=== PATIENT | female | born 1940 | race Caucasian/White ===

== ENCOUNTER 2025-05-06 00:39 | Emergency (ER) | payer OTHER ==
[~2025-05-06] VITALS: Ht 165.1 cm; Wt 91.0 kg
[2025-05-06 00:43] VITALS: O2SAT 94
[2025-05-06] MEDS: PIPERACILLIN/TAZO 3.375G/50ML 50 ML IV ONE (02:07)
[2025-05-06] MEDS: SODIUM CHLORIDE 0.9% 1,000 ML IV ONE (02:07)
[2025-05-06] MEDS: VANCOMYCIN 1G PREMIX 200 ML IV ONE (02:27)
[2025-05-06 02:40] LABS: BASOPHILS % 0.2 % (0.0-2.0); EOSINOPHILS % 0.4 % (0.0-5.0); HEMATOCRIT. 34.2 % (36.0-48.0); HEMOGLOBIN. 11.7 g/dL (12.0-16.0); LYMPHOCYTES % 19.1 % (20.0-50.0); MEAN CORPUSCULAR HEMOGLOBIN 32.4 pg (28.0-32.0); MEAN CORPUSCULAR HGB CONC 34.1 g/dL (31.0-37.0); MEAN CORPUSCULAR VOLUME 94.9 fL (81.0-99.0); MEAN PLATELET VOLUME 8.9 fl (7.4-10.4); MONOCYTES % 10.1 % (2.0-8.0); NEUTROPHILS % 70.2 % (40.0-76.0); PLATELET 167 x1000/uL (130-400); RED CELL DISTRIBUTION WIDTH 13.1 % (11.6-14.6)
[2025-05-06 03:30] VITALS: TEMP 37.1
[2025-05-06 03:50] LABS: CHLORIDE 104 mEq/L (98-107); POTASSIUM 3.5 mEq/L (3.5-5.1); SODIUM 137 mEq/L (136-145)
[2025-05-06 03:51] LABS: CALCIUM 8.5 mg/dL (8.7-10.4); CARBON DIOXIDE 21 mEq/L (21-32)
[2025-05-06 03:56] LABS: CREATININE 0.7 mg/dL (0.6-1.0); GLUCOSE 198 mg/dL (70-105); TROPONIN I HIGH SENSITIVITY 19 ng/L (3.0-34); UREA NITROGEN BLOOD 7 mg/dL (9-23)
[2025-05-06 03:58] LABS: ALANINE AMINOTRANSFERASE 27 IU/L (10-49); ASPARTATE AMINOTRANSFERASE 34 IU/L (<34); BILIRUBIN DIRECT 0.3 mg/dL (<=3.0); BILIRUBIN TOTAL 0.9 mg/dL (0.1-1.0); PROTEIN TOTAL 6.6 g/dL (6.0-8.3)
[2025-05-06 05:09] LABS: BETA HYDROXYBUTYRATE 0.5 mMol/L (0.0-0.3)
[2025-05-06 05:29] LABS: CLARITY URINE CLEAR (CLEAR); COLOR URINE YELLOW (YELLOW); SPECIFIC GRAVITY URINE 1.016 (1.005-1.030)
[2025-05-06 05:30] LABS: GLUCOSE URINE NEGATIVE (NEGATIVE); PROTEIN URINE NEGATIVE (NEGATIVE)
[2025-05-06 05:31] LABS: KETONES URINE 1+ (NEGATIVE); OCCULT BLOOD URINE NEGATIVE (NEGATIVE)
[2025-05-06 05:32] LABS: LEUKOCYTE ESTERASE URINE NEGATIVE (NEGATIVE); NITRITE URINE NEGATIVE (NEGATIVE); UROBILINOGEN URINE 0.2 E.U./dL (0.2-1.0)
[2025-05-06 06:55] LABS: INFLUENZA TYPE A Presumptive Negative (Pres. Neg.); INFLUENZA TYPE B Presumptive Negative (Pres. Neg.)
[2025-05-06 07:43] VITALS: BP 140/64; PULSE 96; RESP 19; O2SAT 97
== END 2025-05-06 08:35 | disposition short-term general hospital (02) ==
LOC: ER 00:48 → EDBEDREQTM 05:16 → ER 08:35
DX: A41.9 Sepsis, unspecified organism (principal); I10 Essential (primary) hypertension; E11.9 Type 2 diabetes mellitus without complications
CPT/HCPCS: 99285; 74176; 96365; 71045; 96366; 80076; 80048; 81003; 82010; 82962; 83880; 83605; 83690; 85025; 87040; 84484; 87804 ×2; 36415; 93005; 96368; J2543; J3370; J7030